=== PATIENT | male | born 1965 | race African-American/Black ===

== ENCOUNTER 2021-04-15 09:22 | Outpatient (REF) | payer MEDICARE, MEDICAID, SELFPAY ==
--- NOTE | ~2021-04-15 | XR_ITS ---
EXAMINATION: XR SHOULDER, RIGHT CLINICAL INFORMATION: Pain COMPARISON: None TECHNIQUE: AP external rotation, Grashey, scapular Y, and axillary views of the right shoulder. FINDINGS: Bone alignment is normal. No fracture or dislocation is seen. The glenohumeral joint is normal. There is arthritis at the acromioclavicular joint. Soft tissues are unremarkable. XR/XR shoulder RT min 2V IMPRESSION: Arthritis at the acromioclavicular joint.
== END 2021-04-15 09:23 | disposition home or self-care (01) ==
LOC: HO.XRAY 09:22
PROVIDERS: PCP Family Medicine; Visit Provider Nurse Practitioner Family
DX: M25.511 Pain in right shoulder (principal)
CPT/HCPCS: 73030

== ENCOUNTER 2023-03-09 15:35 | Outpatient (REF) | payer MEDICARE, MEDICAID, SELFPAY ==
--- NOTE | ~2023-03-09 | US_ITS ---
EXAMINATION: US VENOUS ULTRASOUND WITH DOPPLER LOWER EXTREMITY, LEFT CLINICAL INFORMATION: Acute left calf pain COMPARISON: None available. TECHNIQUE: Ultrasound of the deep veins is performed from the hip to the calf with compression sonography and color and pulse Doppler assessment. Spectral analysis with color-flow imaging is performed. FINDINGS: There is normal venous compression and respiratory variation and augmented flow. The visualized common femoral vein, superficial femoral vein, profunda femoral vein, popliteal vein, and the trifurcation region shows no evidence of deep venous thrombosis. There is no significant popliteal fossa cyst. If the patient's symptoms persist, followup ultrasound in 5 days 7 days might be of value to exclude proximal propagation from a non-visualized calf vein. US/US venous duplex LE LT IMPRESSION: No DVT demonstrated in the left lower extremity.
== END 2023-03-09 15:36 | disposition home or self-care (01) ==
LOC: HO.US 15:35
PROVIDERS: Visit Provider Family Medicine
DX: M79.662 Pain in left lower leg (principal)
CPT/HCPCS: 93971

== ENCOUNTER 2023-06-13 16:31 | Emergency (ER) | payer MEDICARE, MEDICAID, SELFPAY ==
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
[2023-06-13 16:34] VITALS: BP 104/59; PULSE 72; RESP 18; TEMP 36; O2SAT 97; BMI 25.1
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
[2023-06-13] MEDS: Acetaminophen 325 MG TABLET 975 MG PO (20:06)
--- NOTE | 2023-06-13 20:29 | PC.NURSE ---
Took over care at 19;00, pt a&o, no sob or chest pain, medicated per Mar, for headache and lower back pain. pt is resting in bed with no sign of distress. Will continue monitor.
[2023-06-13 21:37] VITALS: BP 123/87; PULSE 57; RESP 17; TEMP 36.5; O2SAT 98
[2023-06-13 22:24] VITALS: BP 102/53; PULSE 56; RESP 17; TEMP 36.4; O2SAT 98
--- NOTE | 2023-06-13 22:36 | PC.NURSE ---
pt a&o, no sob or chest pain, Reviewed discharge instructions from pt, pt verbalized understanding. no sign of distress.
== END 2023-06-13 22:39 | disposition home or self-care (01) ==
PROVIDERS: Emergency Provider Internal Medicine; PCP Family Medicine
DX: S39.012A Strain of muscle, fascia and tendon of lower back, initial encounter (principal); S13.4XXA Sprain of ligaments of cervical spine, initial encounter; R51.9 Headache, unspecified; M54.2 Cervicalgia; V43.52XA Car driver injured in collision with other type car in traffic accident, initial encounter; Y93.9 Activity, unspecified; Y92.9 Unspecified place or not applicable; Y99.9 Unspecified external cause status
CPT/HCPCS: 70450; 72100; 72125; 99284

== ENCOUNTER 2023-10-15 12:25 | Emergency (ER) | payer MEDICARE, MEDICAID, SELFPAY ==
--- NOTE | ~2023-10-15 | XR_ITS ---
EXAMINATION: XR LUMBOSACRAL SPINE CLINICAL INFORMATION: Pain. COMPARISON: None available. TECHNIQUE: Three views of the lumbosacral spine. FINDINGS: There is mild straightening of lumbar lordosis. The vertebral heights and vertebral alignment is normal. There is mild loss of L3-L4 and L5-S1 disc heights. Rest of the disc heights, vertebral heights and alignment is normal. No visible acute fracture, dislocation or subluxation seen. The paravertebral soft tissues are normal. XR/XR lumbar spine 2-3V IMPRESSION: Mild degenerative disc changes L3-L4 and L5-S1 disc levels. No visible acute fracture, dislocation or subluxation seen.
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
[2023-10-15 13:07] VITALS: BP 103/63; PULSE 76; RESP 18; TEMP 36.6; O2SAT 96; BMI 24.5
[2023-10-15] MEDS: Lidocaine 4 % Patch ADH..PATCH 1 PATCH TRANSDERMA (14:57)
[2023-10-15] MEDS: Cyclobenzaprine HCl 10 MG TABLET PO (14:58)
[2023-10-15] MEDS: Ketorolac Tromethamine 30 MG/ML VIAL IM (14:58)
== END 2023-10-15 15:46 | disposition home or self-care (01) ==
LOC: HO.ED 15:42
PROVIDERS: Emergency Provider Emergency Medicine Emergency Medical Services; PCP Family Medicine
DX: M54.50 Low back pain, unspecified (principal); M79.605 Pain in left leg; M79.604 Pain in right leg; Z79.899 Other long term (current) drug therapy
CPT/HCPCS: 72100; 96372; 99283; 99284; J1885